=== PATIENT | male | born 2000 | race Caucasian/White ===

== ENCOUNTER 2023-12-20 20:12 | Emergency (ER) | payer SELFPAY ==
[2023-12-20] MEDS ORDERED: Boostrix 0.5 ML (Tdap) VIAL (>/=7 yrs of age) ONE (21:10)
== END 2023-12-20 22:30 | disposition home or self-care (01) ==
LOC: CSHERS 20:12
DX: S91.332A Puncture wound without foreign body, left foot, initial encounter (principal); W16.512A Jumping or diving into swimming pool striking water surface causing other injury, initial encounter
CPT/HCPCS: 90471; 90715